=== PATIENT | female | born 1965 | race Caucasian/White ===

== ENCOUNTER → 2021-01-15 | Outpatient (CLI) | payer OTHER | LOC: WCC 07:21 | DX: T81.49XA Infection following a procedure, other surgical site, initial encounter (principal); E66.01 Morbid (severe) obesity due to excess calories; Z68.35 Body mass index [BMI] 35.0-35.9, adult; M41.9 Scoliosis, unspecified; G60.3 Idiopathic progressive neuropathy ==

== ENCOUNTER → 2021-01-22 | Outpatient (CLI) | payer OTHER | LOC: WCC 07:20 | DX: T81.49XD Infection following a procedure, other surgical site, subsequent encounter (principal); G60.3 Idiopathic progressive neuropathy; E66.01 Morbid (severe) obesity due to excess calories; M41.9 Scoliosis, unspecified; M19.90 Unspecified osteoarthritis, unspecified site; Y83.8 Other surgical procedures as the cause of abnormal reaction of the patient, or of later complication, without mention of misadventure at the time of the procedure; Y92.9 Unspecified place or not applicable | CPT/HCPCS: 87070; 87205 ==